=== PATIENT | female | born 1995 | race Caucasian/White ===

== ENCOUNTER 2016-12-09 00:53 | Emergency (ER) | payer OTHER ==
[2016-12-09 01:00] VITALS: TEMP 97.5
[2016-12-09] MEDS ORDERED: ONDANSETRON DISINTEGRATING 4 MG TAB ONE (01:06)
[2016-12-09] MEDS ORDERED: ONDANSETRON DISINTEGRATING 4 MG TAB PO ONE (01:07)
--- NOTE | 2016-12-09 01:13 | EDPHY ---
H & P Time Seen by Provider: 12/09/16 01:04 HPI/ROS: CHIEF COMPLAINT: Vomiting, alcohol intake HISTORY OF PRESENT ILLNESS: 21-year-old female brought into the emergency department via private vehicle by her friends who found her vomiting on the floor after drinking vodka and rum. No suicidal or homicidal ideation. No hallucination. No seizure. No assault. No trauma or fall. No co ingestion. No abdominal pain. No hematemesis. PRIMARY CARE PROVIDER: [facility] REVIEW OF SYSTEMS: A ten point review of systems was performed and is negative with the exception of the items mentioned in the HPI PAST MEDICAL & SURGICAL HISTORY: No pertinent medical or surgical history SOCIAL HISTORY: Positive for vodka and rum use tonight PHYSICAL EXAM (Prior to examination, patient consented to physical exam, hands were washed and my usual and customary physical exam procedures followed) 1) GENERAL: Well-developed, well-nourished, alert and oriented. Answering questions appropriately. 2) HEAD: Normocephalic, atraumatic 3) HEENT: Pupils equal, round, reactive to light bilaterally. Sclera anicteric. 4) NECK: Full range of motion, no meningeal signs. 5) LUNGS: Clear auscultation bilaterally, no wheezes, no rhonchi, no retractions. 6) HEART: Regular rate and rhythm, no murmur, no heave, no gallop. 7) ABDOMEN: No guarding, no rebound, no focal tenderness, negative McBurney's, negative Anaya's, negative Rovsing's, negative peritoneal sign, unable to elicit abdominal pain on exam 8) MUSCULOSKELETAL: Moving all extremities, no focal areas of tenderness, no obvious trauma. No peripheral edema or discoloration. 9) BACK: No CVA tenderness. 10) SKIN: No rash, no petechiae. 11) Psychiatric: Patient is oriented X 3, there is no agitation. Calm cooperative DIFFERENTIAL DIAGNOSIS: in no particular include but limited to acute alcohol intoxication, acute alcohol withdrawal, delirium tremens Smoking Status: Never smoked Constitutional: Initial Vital Signs Temperature (C) 36.4 C 12/09/16 00:57 Heart Rate 102 H 12/09/16 00:57 Respiratory Rate 22 H 12/09/16 00:57 Blood Pressure 127/86 H 12/09/16 00:57 O2 Sat (%) 98 12/09/16 00:57 O2 Delivery Mode Room Air Allergies/Adverse Reactions: Penicillins Allergy (Verified 12/09/16 00:56) Home Medications: Medication Instructions Recorded Jessica 28 Day Tablet 12/09/16 MDM/Departure - MDM Medications Given: Discontinued Medications Ondansetron HCl (Zofran Odt) 4 mg PO EDNOW ONE Stop: 12/09/16 01:08 Last Admin: 12/09/16 01:08 Dose: 4 mg - Depart Disposition: Home, Routine, Self-Care Clinical Impression: Alcohol ingestion Condition: Good Instructions: Alcohol Intoxication (ED), Ondansetron (By mouth) Referrals: [facility],. [Clinic] - 1-2 days without fail
[2016-12-09] MEDS ORDERED: ONDANSETRON 4MG PREPACK#2 BTL TAKEHOME ONE (01:42)
[2016-12-09 02:03] VITALS: BP 124/74; PULSE 101; RESP 16; O2SAT 96
== END 2016-12-09 02:03 | disposition home or self-care (01) ==
LOC: EDBD
DX: T51.91XA Toxic effect of unspecified alcohol, accidental (unintentional), initial encounter (principal)